=== PATIENT | male | born 1970 | race African-American/Black ===

== ENCOUNTER 2020-08-26 20:41 | Emergency (ER) | payer OTHER ==
[~2020-08-26] VITALS: Ht 167.6 cm; Wt 101.6 kg
== END 2020-08-26 21:46 | disposition home or self-care (01) ==
LOC: ER 21:07
DX: K04.7 Periapical abscess without sinus (principal); I10 Essential (primary) hypertension; E11.9 Type 2 diabetes mellitus without complications; E78.5 Hyperlipidemia, unspecified; I25.10 Atherosclerotic heart disease of native coronary artery without angina pectoris; Z95.5 Presence of coronary angioplasty implant and graft; Z98.84 Bariatric surgery status; F17.210 Nicotine dependence, cigarettes, uncomplicated
CPT/HCPCS: 99282

== ENCOUNTER 2021-02-21 19:34 | Emergency (ER) | payer OTHER ==
[~2021-02-21] VITALS: Ht 167.6 cm; Wt 102.1 kg
[~2021-02-21 19:34] MED LIST: DICYCLOMINE HCL10 MG PO; ONDANSETRON ODT4 MG PO
[2021-02-21] MEDS ORDERED: LIDOCAINE HCL 1% LOCAL INJ 20 ML VIAL INJ STA (19:46)
[2021-02-21] MEDS ORDERED: LIDOCAINE HCL 2% LOCAL 20 ML VIAL INJ ONE (20:00)
[2021-02-21 22:02] LABS: BASOPHILS # (AUTO) 0.1 (0.0-0.1); BASOPHILS % 0.4 % (0.0-1.0); EOSINOPHILS # (AUTO) 0.4 (0.0-0.4); EOSINOPHILS % 3.2 % (0.0-6.0); HEMATOCRIT 44.7 % (38.2-49.6); LYMPHOCYTES # (AUTO) 1.7 (1.0-3.2); LYMPHOCYTES % 13.4 % (18.0-39.1); MEAN CORPUSCULAR HGB CONC 33.6 g/dL (31-35); MEAN CORPUSCULAR VOLUME 95.3 fL (81-99); MONOCYTES # (AUTO) 1.1 (0.2-0.8); MONOCYTES % 8.9 % (4.4-11.3); NEUTROPHILS # (AUTO) 9.4 (2.1-6.9); NEUTROPHILS % 73.8 % (38.7-80.0); PLATELET COUNT 97 x10e3/uL (140-360); RED BLOOD COUNT 4.69 x10e6/uL (4.3-5.7); RED CELL DISTRIBUTION WIDTH 12.4 % (11.7-14.4)
[2021-02-21 22:11] LABS: ALBUMIN 3.8 g/dL (3.5-5.0); ANION GAP 13.4 mmol/L (8-16); CALCIUM 8.8 mg/dL (8.4-10.2); CREATININE, SERUM 1.3 mg/dL (0.72-1.25); POTASSIUM 4.4 mmol/L (3.5-5.1)
[2021-02-21] MEDS ORDERED: IOPAMIDOL 370 MG/ML 200 ML INFUS..BTL INJ ONE (22:51)
[2021-02-21] MEDS ORDERED: KETOROLAC TROMETHAMINE 30 MG/ML VIAL IV STA (22:52)
[2021-02-21] MEDS ORDERED: COLACE100 MG PO (23:35)
[2021-02-21] MEDS ORDERED: ACETAMINOPHEN-1 EAC4 PO (23:35)
[2021-02-21] MEDS ORDERED: METRONIDAZOLE500 MG PO (23:35)
[2021-02-22] MEDS ORDERED: TRINATE TABLET1 EACH PO (14:02)
[2021-02-22] MEDS ORDERED: CLONAZEPAM0.5 MG PO (14:05)
[2021-02-22] MEDS ORDERED: METOPROLOL SUCC50 MG PO (14:05)
[2021-02-22] MEDS ORDERED: SEROQUEL100 MG PO (14:06)
[2021-02-22] MEDS ORDERED: CIPRO500 MG PO (15:13)
[2021-02-22] MEDS ORDERED: HYDROCODON-ACE1 EA11 PO (15:13)
== END 2021-02-22 00:27 | disposition home or self-care (01) ==
LOC: ER 19:47
DX: K61.1 Rectal abscess (principal); I10 Essential (primary) hypertension; E11.9 Type 2 diabetes mellitus without complications; E78.5 Hyperlipidemia, unspecified; I25.10 Atherosclerotic heart disease of native coronary artery without angina pectoris; Z20.822 Contact with and (suspected) exposure to COVID-19; Z95.5 Presence of coronary angioplasty implant and graft; Z98.84 Bariatric surgery status
CPT/HCPCS: 36415; 74177; 80053; 85025; 99284; J1885; J2001 ×2; Q9967; U0002

== ENCOUNTER → 2021-02-22 | Day surgery (SDC) | payer OTHER ==
[~2021-02-22] MED LIST changes: +ACETAMINOPHEN-1 EAC4 PO; +BUPIVACAINE 0.25% 30ML SDV ONE; +CEFOXITIN 1GM/0.9% NS 50ML 100 ML IV ONE; +CIPRO500 MG PO; +CLONAZEPAM0.5 MG PO; +COLACE100 MG PO; +FAMOTIDINE 20 MG/2 ML VIAL IV ONE; +HYDROCODON-ACE1 EA11 PO; +LIDOCAINE HCL 2% LOCAL INJ 5 ML SDV VIAL INJ ONE; +METOPROLOL SUCC50 MG PO; +METRONIDAZOLE500 MG PO; +ONDANSETRON HCL INJ 2MG/ML 2ML 2 MG/ML VIAL ONE; +POVIDONE IODINE 0.05% 0.05 % ML PO ONE; +PROPOFOL IV EMULSION 10 MG/ML 20 ML VIAL ONE; +SEROQUEL100 MG PO; +SEVOFLURANE INHAL SOLN 250 ML PEN BTL ONE; +SUCCINYLCHOLINE CHLORIDE 20 MG/ML 10ML VIAL ONE; +TRINATE TABLET1 EACH PO
[2021-02-22 16:35] VITALS: BP 148/98
== END | disposition home or self-care (01) ==
LOC: OR 13:02
PROVIDERS: ATTEND Surgery
DX: K61.1 Rectal abscess (principal); G47.33 Obstructive sleep apnea (adult) (pediatric); E11.9 Type 2 diabetes mellitus without complications; I25.810 Atherosclerosis of coronary artery bypass graft(s) without angina pectoris; F31.9 Bipolar disorder, unspecified; E78.5 Hyperlipidemia, unspecified; F17.210 Nicotine dependence, cigarettes, uncomplicated; Z91.012 Allergy to eggs; Z95.1 Presence of aortocoronary bypass graft; Z98.61 Coronary angioplasty status
CPT/HCPCS: 36415; 82948; 87071; 87075; 87186; 87205; J0330; J2001; J2405

== ENCOUNTER 2021-04-22 07:41 | Emergency (ER) | payer OTHER ==
[~2021-04-22] VITALS: Ht 167.6 cm; Wt 104.3 kg
[~2021-04-22 07:41] MED LIST changes: -BUPIVACAINE 0.25% 30ML SDV ONE; -CEFOXITIN 1GM/0.9% NS 50ML 100 ML IV ONE; -FAMOTIDINE 20 MG/2 ML VIAL IV ONE; -LIDOCAINE HCL 2% LOCAL INJ 5 ML SDV VIAL INJ ONE; -ONDANSETRON HCL INJ 2MG/ML 2ML 2 MG/ML VIAL ONE; -POVIDONE IODINE 0.05% 0.05 % ML PO ONE; -PROPOFOL IV EMULSION 10 MG/ML 20 ML VIAL ONE; -SEVOFLURANE INHAL SOLN 250 ML PEN BTL ONE; -SUCCINYLCHOLINE CHLORIDE 20 MG/ML 10ML VIAL ONE
== END 2021-04-22 08:00 | disposition home or self-care (01) ==
LOC: ER 07:53
DX: R05.9 Cough, unspecified (principal); R52 Pain, unspecified; I10 Essential (primary) hypertension; Z95.5 Presence of coronary angioplasty implant and graft
CPT/HCPCS: 99282

== ENCOUNTER 2022-09-08 09:17 | Emergency (ER) | payer OTHER ==
[~2022-09-08] VITALS: Ht 167.6 cm; Wt 104.3 kg
[2022-09-08] MEDS ORDERED: LACTATED RINGER'S 1,000 ML INJ ONE (09:45)
[2022-09-08 09:48] LABS: BASOPHILS % 0.5 % (0.0-1.0); EOSINOPHILS # (AUTO) 0.1 (0.0-0.4); EOSINOPHILS % 1.7 % (0.0-6.0); HEMOGLOBIN 15.5 g/dL (14.0-18.0); LYMPHOCYTES # (AUTO) 1.9 (1.0-3.2); LYMPHOCYTES % 29.8 % (18.0-39.1); MEAN CORPUSCULAR HEMOGLOBIN 31.3 pg (28-32); MEAN CORPUSCULAR HGB CONC 33.7 g/dL (31-35); MEAN CORPUSCULAR VOLUME 92.9 fL (81-99); MONOCYTES # (AUTO) 0.3 (0.2-0.8); MONOCYTES % 4.8 % (4.4-11.3); PLATELET COUNT 95 x10e3/uL (140-360); RED BLOOD COUNT 4.95 x10e6/uL (4.3-5.7); RED CELL DISTRIBUTION WIDTH 12.5 % (11.7-14.4)
[2022-09-08 10:07] LABS: ALBUMIN 3.4 g/dL (3.5-5.0); ALBUMIN/GLOBULIN RATIO 1.1 (0.8-2.0); ANION GAP 10.9 mmol/L (8-16); CALCIUM 8.9 mg/dL (8.4-10.2); CREATININE, SERUM 1.73 mg/dL (0.72-1.25); POTASSIUM 3.9 mmol/L (3.5-5.1)
[2022-09-08 10:14] LABS: CREATINE KINASE MB 1.1 ng/mL (0-5.0)
[2022-09-08 10:24] LABS: CLARITY,URINE SL CLOUDY (CLEAR); COLOR,URINE YELLOW (YELLOW); KETONES,URINE NEGATIVE (NEGATIVE); LEUKOCYTE ESTERASE ,URINE NEGATIVE (NEGATIVE); NITRITE,URINE NEGATIVE (NEGATIVE); PROTEIN,URINE DIPSTICK 2+ (NEGATIVE)
[2022-09-08 10:29] LABS: BACTERIA,URINE MODERATE /HPF; EPITHELIAL CELLS,URINE FEW /LPF; RBC,URINE 0-5 /HPF (0-5)
[2022-09-08] MEDS ORDERED: KETOROLAC TROMETHAMINE 30 MG/ML VIAL IV STA (10:33)
[2022-09-08] MEDS ORDERED: NAPROXEN250 MG PO (12:18)
[2022-09-08 12:22] VITALS: O2SAT 99
== END 2022-09-08 12:29 | disposition home or self-care (01) ==
LOC: ER 09:30
DX: R25.2 Cramp and spasm (principal); I10 Essential (primary) hypertension; Z95.5 Presence of coronary angioplasty implant and graft
CPT/HCPCS: 36415; 80053; 81001; 82550; 82553; 84484; 85025; 99283; J7121

== ENCOUNTER 2025-01-03 04:17 | Emergency (ER) | payer OTHER ==
[~2025-01-03] VITALS: Ht 167.6 cm; Wt 104.8 kg
[~2025-01-03 04:17] MED LIST changes: +CEPHALEXIN500 MG PO; +NAPROXEN250 MG PO; +PREDNISONE50 MG PO; +VENTOLIN HFA18 GM INH
[2025-01-03 04:22] VITALS: PULSE 91; RESP 20; TEMP 97.9
[2025-01-03] MEDS ORDERED: NAPROXEN250 MG PO (04:26)
[2025-01-03] MEDS ORDERED: ORPHENADRINE C100 MG PO (04:26)
[2025-01-03] MEDS: KETOROLAC TROMETHAMINE 60 MG/2 ML VIAL IM ONE (04:32)
[2025-01-03 04:45] VITALS: BP 130/95; PULSE 92; RESP 17; TEMP 97.8; O2SAT 97
== END 2025-01-03 05:02 | disposition home or self-care (01) ==
LOC: ER 04:25
DX: M54.2 Cervicalgia (principal); M62.838 Other muscle spasm; I12.9 Hypertensive chronic kidney disease with stage 1 through stage 4 chronic kidney disease, or unspecified chronic kidney disease; E11.22 Type 2 diabetes mellitus with diabetic chronic kidney disease; N18.9 Chronic kidney disease, unspecified; Z98.84 Bariatric surgery status; Z98.890 Other specified postprocedural states
CPT/HCPCS: 96372; 99282; J1885